=== PATIENT | female | born 1930 | race Caucasian/White ===

== ENCOUNTER 2016-08-25 21:26 | Emergency (ER) | payer OTHER, BC ==
[2016-08-25 21:33] VITALS: BMI 21.6
--- NOTE | 2016-08-25 22:16 | PDOC ---
History of Present Illness <Reji Nelson - Last Filed: 08/25/16 22:12> - General History Source: Patient, Family Exam Limitations: No Limitations - History of Present Illness Initial Comments: 08/25/16 22:17 The patient is a 86 year old female, with a significant past medical history of AFib(on coumadin), diverticulitis, hypertension, hyperlipidemia, hypothyroidism , and hyperkalemia, who presents to the emergency department complaining of leg pain bilaterally approximately 2 days. The patient reports she went out shopping with her grandson, when suddenly she began to get pain in her left forearm and in her legs bilaterally. After going home she reports her leg pain worsened due to swelling and pressure. The patient reports the swelling in her legs is part of her baseline. However, as per family member, the patients leg swelling has been worsening. The patient reports paresthesias in her legs bilaterally. The patient reports she is on a water pill, but is only drinking 3 bottles of water a day. She reports dry mucous membranes and production of sputum, but denies fever, chills, cough, headache, or dizziness. The patient admits she elevates her legs 2 times a day, but does not elevate them at night. The patient reports diffuse body aches, for which she has been taking tylenol with minor relief. The patient reports she has followed-up with Dr. Patino for her leg swelling. The patient denies any chest pain, shortness of breath, diaphoresis or palpitations. The patient denies any recent travel or sick contacts. Allergies: Levofloxacin, Metronidazole HCl, ciprofloxacin HCl Past Surgical History: Appendectomy, left ankle screws PCP: Dr. Patino Tank Filler: Dr. Swan <Liat Edwards - Last Filed: 08/25/16 22:21> - General Chief Complaint: Pain Stated Complaint: BOTH LEGS PAIN/LT ARM PAIN Time Seen by Provider: 08/25/16 21:52 Past History - Past Medical History Anemia: No Asthma: No Cancer: Yes Cardiac Disorders: Yes CVA: Yes COPD: No CHF: No Dementia: No Diabetes: No GI Disorders: Yes (diverticulitis) Disorders: No HTN: Yes Hypercholesterolemia: Yes Liver Disease: No Suicide Attempt (Hx): No Seizures: No Thyroid Disease: Yes - Surgical History Abdominal Surgery: No Appendectomy: Yes Cardiac Surgery: No Cholecystectomy: No Lung Surgery: No Neurologic Surgery: No Orthopedic Surgery: Yes (lt ankle screws in.) - Immunization History Immunization Up to Date: Yes - Psycho/Social/Smoking Cessation Hx Anxiety: Yes (ON MEDICATION) Suicidal Ideation: No Smoking Status: No Smoking History: Never smoked Have you smoked in the past 12 months: No Number of Cigarettes Smoked Daily: 0 Information on smoking cessation initiated: No Hx Alcohol Use: No Drug/Substance Use Hx: No Substance Use Type: None Hx Substance Use Treatment: No <Reji Nelson - Last Filed: 08/25/16 22:12> <Liat Edwards - Last Filed: 08/25/16 22:21> - Past Medical History Allergies/Adverse Reactions: Allergies Allergy/AdvReac Type Severity Reaction Status Date / Time levofloxacin [From Levaquin] Allergy Intermediate Verified 08/25/16 21:29 Metronidazole HCl Allergy Intermediate Verified 08/25/16 21:29 [From Flagyl] ciprofloxacin HCl AdvReac Intermediate Verified 08/25/16 21:29 [From Cipro] Home Medications: Ambulatory Orders Digoxin [Lanoxin -] 0.125 mcg PO DAILY 03/13/13 Diltiazem HCl [Cartia Xt] 240 mg PO DAILY 03/13/13 Dofetilide [Tikosyn] 125 mcg PO BID #0 capsule 03/14/13 Warfarin Sodium 3 mg PO ASDIR #0 tablet 03/14/13 Sodium Polystyrene Sulfonate [Kayexalate] 15 gm PO DAILY #4 bottle 03/15/14 Buspirone HCl [Buspar -] 15 mg PO DAILY #0 08/06/14 Levothyroxine [Synthroid -] 50 mcg PO DAILY #0 tablet 08/06/14 Metoprolol Succinate [Toprol XL -] 150 mg PO HS #0 tab.sr.24h 08/06/14 Olmesartan Medoxomil [Benicar -] 40 mg PO DAILY #0 tablet 08/06/14 Rosuvastatin Calcium [Crestor] 10 mg PO HS #0 tablet 08/06/14 Warfarin Sodium [Coumadin] 2.5 mg PO ASDIR #0 08/06/14 Review of Systems - Review of Systems Able to Perform ROS?: Yes HEENTM: Yes: Other (Dry mucous membranes, Sputum production) Musculoskeletal: Yes: Symptoms Reported (Bilateral leg pain secondary to edema) , Other (Bilateral lower extremity edema, Diffuse body aches) Neurological: Yes: Paresthesia All Other Systems: Reviewed and Negative <Liat Edwards - Last Filed: 08/25/16 22:21> *Physical Exam - Vital Signs Last Vital Signs Temp Pulse Resp BP Pulse Ox 98.0 F 120 H 14 152/87 98 08/25/16 21:30 08/25/16 21:30 08/25/16 21:30 08/25/16 21:30 08/25/16 21:30 - Physical Exam General Appearance: Yes: Nourished, Appropriately Dressed. No: Apparent Distress HEENT: positive: Normal ENT Inspection, Other (DRY MUCOSAE) Neck: positive: Supple. negative: Tender, Carotid bruit Respiratory/Chest: positive: Lungs Clear, Normal Breath Sounds. negative: Chest Tender, Respiratory Distress Cardiovascular: positive: Irregularly Irregular Gastrointestinal/Abdominal: positive: Normal Bowel Sounds, Soft. negative: Tender Extremity: positive: Normal Capillary Refill, Pedal Edema (2 + UP TO KNEES. NON TENDER. LIGHT, SYMETRIC ERYTHEMA) Integumentary: positive: Normal Color. negative: Petechiae, Rash, Ecchymosis, Bruising Neurologic: positive: Fully Oriented, Alert, Normal Mood/Affect, Normal Response , Motor Strength 5/5 <Reji Nelson - Last Filed: 08/25/16 22:12> - Vital Signs Last Vital Signs Temp Pulse Resp BP Pulse Ox 98.0 F 120 H 14 152/87 98 08/25/16 21:30 08/25/16 21:30 08/25/16 21:30 08/25/16 21:30 08/25/16 21:30 <Liat Edwards - Last Filed: 08/25/16 22:21> Medical Decision Making - Medical Decision Making 08/25/16 22:13 SYMPTOMS AND COMLAINTS SEEM CHRONIC. IN NO RESP DISTRESS LEG ELEVATION, HYDRATION, AND FOLLOW UP SATURDAY <Reji Nelson - Last Filed: 08/25/16 22:12> *DC/Admit/Observation/Transfer <Reji Nelson - Last Filed: 08/25/16 22:12> <Liat Edwards - Last Filed: 08/25/16 22:21> Diagnosis at time of Disposition: Leg pain, bilateral - Discharge Dispostion Disposition: HOME Condition at time of disposition: Stable - Referrals Referrals: Narcisa aPtino MD [Primary Care Provider] - 24 hours - Patient Instructions Additional Instructions: LEG ELEVATION FOR LONG AND OFTEN POSSIBLE ELEVATION AT NIGHT CONSIDER COMPRESSION STOCKINGS IF SIGNIFICANT REDUCTION IN SWELLING AND GUIDED BY YOUR DOCTOR SEE YOUR DOCTOR NEXT WEEK RETURN TO ER IF WORSENING OR NEW SYMPTOMS
[2016-08-25 22:23] VITALS: BP 140/80; PULSE 87; TEMP 98.3
== END 2016-08-25 22:23 | disposition home or self-care (01) ==
LOC: JER 21:26
DX: I48.91 Unspecified atrial fibrillation (principal); Z79.01 Long term (current) use of anticoagulants; I10 Essential (primary) hypertension; E78.00 Pure hypercholesterolemia, unspecified; E03.9 Hypothyroidism, unspecified
CPT/HCPCS: 99283-25

== ENCOUNTER 2017-04-12 21:53 | Emergency (ER) | payer OTHER, BC ==
[2017-04-12 21:58] VITALS: BP 162/84; PULSE 128; TEMP 97.5; BMI 20.8
--- NOTE | 2017-04-12 22:10 | PDOC ---
History of Present Illness <Dayne Guajardo - Last Filed: 04/13/17 01:46> - General History Source: Patient, Family Exam Limitations: No Limitations - History of Present Illness Initial Comments: 04/12/17 22:37 86 y/o F with a PMHx of HTN, HLD, CVA, thyroid disease presents to the ED with a frontal headache tonight. Patient reports drinking water alleviated some symptoms. Daughter believes she may have been dehydrated. She reports light exacerbated her headache. She denies dizziness, numbness, tingling. Denies chest pain, SOB, palpitations. <Abiola Chen - Last Filed: 04/13/17 01:49> - General Chief Complaint: Headache Stated Complaint: HEADACHE Time Seen by Provider: 04/12/17 22:10 Past History - Past Medical History Anemia: No Asthma: No Cancer: Yes Cardiac Disorders: Yes CVA: Yes COPD: No CHF: No Dementia: No Diabetes: No GI Disorders: Yes (diverticulitis) Disorders: No HTN: Yes Hypercholesterolemia: Yes Liver Disease: No Seizures: No Thyroid Disease: Yes - Surgical History Abdominal Surgery: No Appendectomy: Yes Cardiac Surgery: No Cholecystectomy: No Lung Surgery: No Neurologic Surgery: No Orthopedic Surgery: Yes (lt ankle screws in.) - Immunization History Immunization Up to Date: Yes - Suicide/Smoking/Psychosocial Hx Smoking Status: No Smoking History: Never smoked Have you smoked in the past 12 months: No Number of Cigarettes Smoked Daily: 0 Hx Alcohol Use: No Drug/Substance Use Hx: No Substance Use Type: None Hx Substance Use Treatment: No <Dayne Guajardo - Last Filed: 04/13/17 01:46> <Abiola Chen - Last Filed: 04/13/17 01:49> - Past Medical History Allergies/Adverse Reactions: Allergies Allergy/AdvReac Type Severity Reaction Status Date / Time levofloxacin [From Levaquin] Allergy Intermediate Verified 04/12/17 21:58 Metronidazole HCl Allergy Intermediate Verified 04/12/17 21:58 [From Flagyl] ciprofloxacin HCl AdvReac Intermediate Verified 04/12/17 21:58 [From Cipro] Home Medications: Ambulatory Orders Digoxin [Lanoxin -] 0.125 mcg PO DAILY 03/13/13 Diltiazem HCl [Cartia Xt] 240 mg PO DAILY 03/13/13 Dofetilide [Tikosyn] 125 mcg PO BID #0 capsule 03/14/13 Warfarin Sodium 3 mg PO ASDIR #0 tablet 03/14/13 Buspirone HCl [Buspar -] 15 mg PO DAILY #0 08/06/14 Levothyroxine [Synthroid -] 50 mcg PO DAILY #0 tablet 08/06/14 Metoprolol Succinate [Toprol XL -] 150 mg PO HS #0 tab.sr.24h 08/06/14 Olmesartan Medoxomil [Benicar -] 40 mg PO DAILY #0 tablet 08/06/14 Rosuvastatin Calcium [Crestor] 10 mg PO HS #0 tablet 08/06/14 Warfarin Sodium [Coumadin] 2.5 mg PO ASDIR #0 08/06/14 Cephalexin Monohydrate [Keflex -] 250 mg PO Q8H #21 capsule 04/13/17 Review of Systems - Review of Systems Able to Perform ROS?: Yes Comments:: 04/12/17 22:37 GENERAL/CONSTITUTIONAL: No fever or chills. No weakness. HEAD, EYES, EARS, NOSE AND THROAT: No change in vision. No ear pain or discharge. No sore throat. CARDIOVASCULAR: No chest pain or shortness of breath. RESPIRATORY: No cough, wheezing, or hemoptysis. GASTROINTESTINAL: No nausea, vomiting, diarrhea or constipation. GENITOURINARY: No dysuria, frequency, or change in urination. MUSCULOSKELETAL: No joint or muscle swelling or pain. No neck or back pain. SKIN: No rash NEUROLOGIC: (+) headache. No vertigo, loss of consciousness, or change in strength/sensation. ENDOCRINE: No increased thirst. No abnormal weight change. HEMATOLOGIC/LYMPHATIC: No anemia, easy bleeding, or history of blood clots. ALLERGIC/IMMUNOLOGIC: No hives or skin allergy. <Abiola Chen - Last Filed: 04/13/17 01:49> *Physical Exam - Vital Signs Last Vital Signs Temp Pulse Resp BP Pulse Ox 97.5 F L 128 H 20 162/84 99 04/12/17 21:54 04/12/17 21:54 04/12/17 21:54 04/12/17 21:54 04/12/17 21:54 <Dayne Guajardo - Last Filed: 04/13/17 01:46> - Vital Signs Last Vital Signs Temp Pulse Resp BP Pulse Ox 97.5 F L 128 H 20 162/84 99 04/12/17 21:54 04/12/17 21:54 04/12/17 21:54 04/12/17 21:54 04/12/17 21:54 - Physical Exam Comments: 04/12/17 22:37 GENERAL: Awake, alert, and fully oriented, in no acute distress HEAD: No signs of trauma EYES: PERRLA, EOMI, sclera anicteric, conjunctiva clear ENT: Facial tenderness. Auricles normal inspection, hearing grossly normal, nares patent, oropharynx clear without exudates. Moist mucosa NECK: Normal ROM, supple, no lymphadenopathy, JVD, or masses LUNGS: Breath sounds equal, clear to auscultation bilaterally. No wheezes, and no crackles HEART: Regular rate and rhythm, normal S1 and S2, no murmurs, rubs or gallops ABDOMEN: Soft, nontender, normoactive bowel sounds. No guarding, no rebound. No masses EXTREMITIES: Normal range of motion, no edema. No clubbing or cyanosis. No cords, erythema, or tenderness NEUROLOGICAL: Cranial nerves II through XII grossly intact. Normal speech, normal gait SKIN: Warm, Dry, normal turgor, no rashes or lesions noted. <Abiola Chen - Last Filed: 04/13/17 01:49> ED Treatment Course - LABORATORY CBC & Chemistry Diagram: 04/12/17 23:00 04/12/17 23:00 <Dayne Guajardo - Last Filed: 04/13/17 01:46> - LABORATORY CBC & Chemistry Diagram: 04/12/17 23:00 04/12/17 23:00 - RADIOLOGY Radiograph Interpretation: 04/13/17 01:[address] reported by Nagi Stapleton MD IMPRESSION: NO ACUTE INTRACRANIAL ABNORMALITY. <Abiola Chen - Last Filed: 04/13/17 01:49> *DC/Admit/Observation/Transfer - Discharge Dispostion Admit: No - Attestations Physician Attestion: 04/12/17 22:10 I, Dr. Dayne Guajardo, attest that this document has been prepared under my direction and personally reviewed by me in its entirety. I further attest, that it accurately reflects all work, treatment, procedures and medical decision -making performed by me. <Dayne Guajardo - Last Filed: 04/13/17 01:46> - Attestations Scribe Attestion: 04/12/17 22:38 Documentation prepared by Abiola Chen, acting as medical anthropologist for Dayne Guajardo DO. <Abiola Chen - Last Filed: 04/13/17 01:49> Diagnosis at time of Disposition: UTI (urinary tract infection) Qualifiers: Urinary tract infection type: site unspecified Hematuria presence: with hematuria Qualified Code(s): N39.0 - Urinary tract infection, site not specified Headache Qualifiers: Headache type: unspecified Headache chronicity pattern: acute headache Intractability: not intractable Qualified Code(s): R51 - Headache - Discharge Dispostion Disposition: HOME - Prescriptions Prescriptions: Cephalexin Monohydrate [Keflex -] 250 mg PO Q8H #21 capsule - Referrals Referrals: Narcisa Patino MD [Primary Care Provider] - - Patient Instructions Printed Discharge Instructions: DI for Headache, DI for Urinary Tract Infection (UTI) Additional Instructions: Dr. Mrs Estrada- Plenty of Fluids, Tylenol for pain, Keflex three times a day for seven days for UTI, Follow up with your doctor next week. Return to us if worse or new symptoms. Best- Dr. Dayne Guajardo
[2017-04-12 23:26] LABS: EOSINOPHIL 4.9 % (0-4.5); MCH 27.1 pg (25.7-33.7); MCHC 33.3 g/dl (32.0-36.0); MEAN CELL VOLUME 81.5 fl (80-96); MEAN PLT VOLUME 10.8 fl (7.5-11.1); NEUTROPHILS 54.2 % (42.8-82.8); PLATELET COUNT 88 K/MM3 (134-434); WHITE BLOOD COUNT 5.9 K/mm3 (4.0-10.0)
[2017-04-12 23:37] LABS: URINE APPEARANCE CLEAR; URINE BILIRUBIN NEGATIVE (NEGATIVE); URINE BLOOD 1+ (NEGATIVE); URINE COLOR STRAW; URINE GLUCOSE (UA) NEGATIVE (NEGATIVE); URINE KETONE NEGATIVE (NEGATIVE); URINE NITRITE NEGATIVE (NEGATIVE); URINE PROTEIN NEGATIVE (NEGATIVE); URINE UROBILINOGEN NEGATIVE mg/dL (0.2-1.0)
[2017-04-12 23:47] LABS: ALBUMIN 4.3 g/dl (3.4-5.0); ANION GAP 11 (8-16); BILIRUBIN,TOTAL 0.6 mg/dL (0.2-1.0); CALCIUM 8.8 mg/dL (8.5-10.1); CO2 26 mmol/L (21-32); CREATININE 1.2 mg/dL (0.55-1.02); GLUCOSE,RANDOM 89 mg/dL (74-106); SGOT/AST 22 U/L (15-37); SGPT/ALT 30 U/L (12-78)
[2017-04-12 23:48] LABS: ALK PHOS 80 U/L (45-117)
[2017-04-12 23:55] LABS: INR 1.64 (0.82-1.09); PROTHROMBIN TIME (PATIENT) 18.5 SEC (9.98-11.88)
[2017-04-13 00:12] LABS: URINE WBC 2 /hpf (3-5)
[2017-04-13] MEDS ORDERED: CEFTRIAXONE 1 GM in DEXTROSE 5%-WATER - 50 ML IVPB ONE (00:31)
[2017-04-13] MEDS ORDERED: SODIUM CHLORIDE 1,000 ML IV STA (00:31)
[2017-04-13] MEDS ORDERED: cefTRIAXone SODIUM 1 GM VIAL ONE (00:37)
[2017-04-13 02:25] LABS: ERYTHROCYTE SEDIMENTATION RATE 10 mm/hr (0-30)
[2017-04-13 12:10] LABS: URINE LEUK ESTERASE TRACE (NEGATIVE)
== END 2017-04-13 02:06 | disposition home or self-care (01) ==
LOC: JER 21:53
DX: N39.0 Urinary tract infection, site not specified (principal); I10 Essential (primary) hypertension; E78.00 Pure hypercholesterolemia, unspecified; E03.9 Hypothyroidism, unspecified; Z86.73 Personal history of transient ischemic attack (TIA), and cerebral infarction without residual deficits
CPT/HCPCS: 36415; 70450-TC; 80053; 81003; 81015; 83605; 85025; 85610; 85651; 87086; 96365; 99283-25

== ENCOUNTER 2017-10-06 13:53 | Emergency (ER) | payer OTHER, BC ==
[2017-10-06 14:11] VITALS: BP 149/75; PULSE 91; TEMP 97.8; BMI 27.3
[2017-10-06] MEDS ORDERED: DIPHTH,PERTUSS(ACELL),TET 0.5 ML DISP.SYRIN IM ONE (15:05)
--- NOTE | 2017-10-06 16:07 | PDOC ---
History of Present Illness - General Chief Complaint: Laceration Stated Complaint: FALL Time Seen by Provider: 10/06/17 14:15 - History of Present Illness Initial Comments: 10/06/17 15:14 CHIEF COMPLAINT: laceration HISTORY OF PRESENT ILLNESS: 87 yo F presents to [facility] with c/o of laceration s/p mechanical fall. Patient and daughter report that the patient tripped on "a broken sidewalk" and sustained a laceration to her L leg. Daughter reports that she witnessed the fall and that the patient did not suffer any other injuries. Daughter reports that the patient "caught herself with her hands before she fell, so she didn't hit anything else." Patient denies any pain to wrist, hands, or arms, or anywhere else on her body. Patient states she "thinks" she had a tetanus in the last 10 years but is unsure. No recent travel or sick contacts. PAST MEDICAL HISTORY: Denies past medical history FAMILY HISTORY: Denies SOCIAL HISTORY: Denies tobacco, alcohol, illicit drug use. SURGICAL HISTORY: Denies ALLERGIES: levaquin, flagyl, cipro REVIEW OF SYSTEMS General/Constitutional: Denies fever or chills. Denies weakness, weight change. HEENT: Denies change in vision. Denies ear pain or discharge. Denies sore throat. Cardiovascular: Denies chest pain or shortness of breath. Respiratory: Denies cough, wheezing, or hemoptysis. Gastrointestinal: Denies nausea, vomiting, diarrhea or constipation. Denies rectal bleeding. Genitourinary: Denies dysuria, frequency, or change in urination. Musculoskeletal: Denies joint or muscle swelling or pain. Denies neck or back pain. Skin and breasts: "I tripped on a broken sidewalk and cut my leg." Neurologic: Denies headache, vertigo, loss of consciousness, or loss of sensation. PHYSICAL EXAM General Appearance: Well-appearing, appropriately dressed. No apparent distress. HEENT: EOMI, PERRLA, normal ENT inspection, normal voice, TMs normal, pharynx normal. No conjunctival pallor. No photophobia, scleral icterus. Respiratory/Chest: Lungs CTAB. No shortness of breath, chest tenderness, respiratory distress, accessory muscle use. No crackles, rales, rhonchi, stridor , wheezing, dullness Cardiovascular: RRR. S1, S2. Gastrointestinal/Abdominal: Normal bowel sounds. Abdomen soft, non-distended. No tenderness or rebound tenderness. No organomegaly, pulsatile mass, guarding , hernia, hepatomegaly, splenomegaly. Musculoskeletal/Extremities: Normal inspection. FROM of all extremities, normal capillary refill. Pelvis Stable. No CVA tenderness. No tenderness to extremities, pedal edema, swelling, erythema or deformity. Integumentary: 2 cm thin flap laceration to left lower leg with surrounding ecchymosis. Appropriate color, dry, warm. No cyanosis, erythema, jaundice or rash Neurologic: heart specialist II-XII intact. Fully oriented, alert. Appropriate mood/affect. Motor strength 5/5. No appreciable EOM palsy, facial droop or sensory deficit. Past History - Past Medical History Allergies/Adverse Reactions: Allergies Allergy/AdvReac Type Severity Reaction Status Date / Time levofloxacin [From Levaquin] Allergy Intermediate Verified 04/12/17 21:58 Metronidazole HCl Allergy Intermediate Verified 04/12/17 21:58 [From Flagyl] ciprofloxacin HCl AdvReac Intermediate Verified 04/12/17 21:58 [From Cipro] Home Medications: Ambulatory Orders Digoxin [Lanoxin -] 0.125 mcg PO DAILY 03/13/13 Diltiazem HCl [Cartia Xt] 240 mg PO DAILY 03/13/13 Dofetilide [Tikosyn] 125 mcg PO BID #0 capsule 03/14/13 Warfarin Sodium 3 mg PO ASDIR #0 tablet 03/14/13 Buspirone HCl [Buspar -] 15 mg PO DAILY #0 08/06/14 Levothyroxine [Synthroid -] 50 mcg PO DAILY #0 tablet 08/06/14 Metoprolol Succinate [Toprol XL -] 150 mg PO HS #0 tab.sr.24h 08/06/14 Olmesartan Medoxomil [Benicar -] 40 mg PO DAILY #0 tablet 08/06/14 Rosuvastatin Calcium [Crestor] 10 mg PO HS #0 tablet 08/06/14 Warfarin Sodium [Coumadin] 2.5 mg PO ASDIR #0 08/06/14 Cephalexin Monohydrate [Keflex -] 250 mg PO Q8H #21 capsule 04/13/17 Anemia: No Asthma: No Cancer: Yes Cardiac Disorders: Yes CVA: Yes COPD: No CHF: No Dementia: No Diabetes: No GI Disorders: Yes (diverticulitis) Disorders: No HTN: Yes Hypercholesterolemia: Yes Liver Disease: No Seizures: No Thyroid Disease: Yes - Surgical History Abdominal Surgery: No Appendectomy: Yes Cardiac Surgery: No Cholecystectomy: No Lung Surgery: No Neurologic Surgery: No Orthopedic Surgery: Yes (lt ankle screws in.) - Immunization History Immunization Up to Date: Yes - Suicide/Smoking/Psychosocial Hx Smoking Status: No Smoking History: Never smoked Have you smoked in the past 12 months: No Number of Cigarettes Smoked Daily: 0 Information on smoking cessation initiated: No Hx Alcohol Use: No Drug/Substance Use Hx: No Substance Use Type: None Hx Substance Use Treatment: No *Physical Exam - Vital Signs Last Vital Signs Temp Pulse Resp BP Pulse Ox 97.8 F 91 H 20 149/75 98 10/06/17 14:09 10/06/17 14:09 10/06/17 14:09 10/06/17 14:09 10/06/17 14:09 Medical Decision Making - Medical Decision Making 10/06/17 16:07 87 yo F presents to [facility] with c/o of laceration s/p mechanical fall. flap laceration with flap too thin for suture repair, laceration repaired with dermabond. Edges well approximated, no bleeding at this time. Tdap given. Advised patient to follow up with PCP by the end of the week. Advised patient of signs and symptoms for return to ER; patient verbalized understanding and agrees to plan. *DC/Admit/Observation/Transfer Diagnosis at time of Disposition: Laceration - Discharge Dispostion Disposition: HOME Condition at time of disposition: Stable Admit: No - Referrals Referrals: Narcisa Patino MD [Primary Care Provider] - - Patient Instructions Printed Discharge Instructions: DI for Laceration Repair With Dermabond Additional Instructions: Please follow up with Dr. Patino by the end of this week for further evaluation and continued monitoring. If you develop ANY dizziness, headache, loss of memory, wrist pain, worsening leg pain, or you develop redness, streaking, swelling, or warmth to the site of your cut, please return to the ER immediately. - Post Discharge Activity
== END 2017-10-06 15:56 | disposition home or self-care (01) ==
LOC: JER 13:53 → JERFT 13:53
PROC: 0HQLXZZ Repair Left Lower Leg Skin, External Approach (ICD-10-PCS; principal; 2017-10-06)
PROC: 3E0234Z Introduction of Serum, Toxoid and Vaccine into Muscle, Percutaneous Approach (ICD-10-PCS; 2017-10-06)
DX: S81.812A Laceration without foreign body, left lower leg, initial encounter (principal); W18.39XA Other fall on same level, initial encounter; Y93.01 Activity, walking, marching and hiking; Y92.480 Sidewalk as the place of occurrence of the external cause; Y99.8 Other external cause status; I10 Essential (primary) hypertension; E78.00 Pure hypercholesterolemia, unspecified; E07.9 Disorder of thyroid, unspecified; Z86.73 Personal history of transient ischemic attack (TIA), and cerebral infarction without residual deficits; Z79.01 Long term (current) use of anticoagulants
CPT/HCPCS: 12011; 90471; 90715; 99281-25

== ENCOUNTER 2017-12-19 14:16 | Observation (INO) | payer OTHER, BC ==
--- NOTE | 2017-12-19 14:25 | PDOC ---
Rapid Medical Evaluation Chief Complaint: Overdose Time Seen by Provider: 12/19/17 14:20 Medical Evaluation: Allergies Allergy/AdvReac Type Severity Reaction Status Date / Time levofloxacin [From Levaquin] Allergy Intermediate Verified 12/19/17 14:21 Metronidazole HCl Allergy Intermediate Verified 12/19/17 14:21 [From Flagyl] ciprofloxacin HCl AdvReac Intermediate Verified 12/19/17 14:21 [From Cipro] I have performed a brief in-person evaluation of this patient. The patient presents with a chief complaint of: concerned she took her morning pills twice at 11am. No symptoms. Meds are diltiazem and olmesartan Pertinent physical exam findings: none. Vital signs normal I have ordered the following: nothing The patient will proceed to the ED for further evaluation. Discharge Disposition - Diagnosis Medication administered in error - Referrals - Patient Instructions - Post Discharge Activity
--- NOTE | 2017-12-19 15:20 | PDOC ---
History of Present Illness - General Chief Complaint: Overdose Stated Complaint: TOOK MEDICINE TWICE Time Seen by Provider: 12/19/17 14:20 History Source: Patient Exam Limitations: No Limitations - History of Present Illness Initial Comments: 12/19/17 15:19 This is a 87-year-old woman with past medical history of A. fib, hypertension, hyperlipidemia presents emergency departments after questionable overdose of calcium channel angie and ARB. Patient states she believes she took her medication this morning but then took a nap. When awaking from that she was unsure if she had taken her medication and took another dose. Patient called poison control and was referred to the emergency department for continued evaluation. She denies all complaints at this time. Past History - Past Medical History Allergies/Adverse Reactions: Allergies Allergy/AdvReac Type Severity Reaction Status Date / Time levofloxacin [From Levaquin] Allergy Intermediate Verified 12/19/17 14:21 Metronidazole HCl Allergy Intermediate Verified 12/19/17 14:21 [From Flagyl] ciprofloxacin HCl AdvReac Intermediate Verified 12/19/17 14:21 [From Cipro] Home Medications: Ambulatory Orders Digoxin [Lanoxin -] 0.125 mcg PO DAILY 03/13/13 Diltiazem HCl [Cartia Xt] 240 mg PO DAILY 03/13/13 Dofetilide [Tikosyn] 125 mcg PO BID #0 capsule 03/14/13 Warfarin Sodium 3 mg PO ASDIR #0 tablet 03/14/13 Buspirone HCl [Buspar -] 15 mg PO DAILY #0 08/06/14 Levothyroxine [Synthroid -] 50 mcg PO DAILY #0 tablet 08/06/14 Metoprolol Succinate [Toprol XL -] 150 mg PO HS #0 tab.sr.24h 08/06/14 Olmesartan Medoxomil [Benicar -] 40 mg PO DAILY #0 tablet 08/06/14 Rosuvastatin Calcium [Crestor] 10 mg PO HS #0 tablet 08/06/14 Warfarin Sodium [Coumadin] 2.5 mg PO ASDIR #0 08/06/14 Cephalexin Monohydrate [Keflex -] 250 mg PO Q8H #21 capsule 04/13/17 Anemia: No Asthma: No Cancer: Yes Cardiac Disorders: Yes CVA: Yes COPD: No CHF: No Dementia: No Diabetes: No GI Disorders: Yes (diverticulitis) Disorders: No HTN: Yes Hypercholesterolemia: Yes Liver Disease: No Seizures: No Thyroid Disease: Yes - Surgical History Abdominal Surgery: No Appendectomy: Yes Cardiac Surgery: No Cholecystectomy: No Lung Surgery: No Neurologic Surgery: No Orthopedic Surgery: Yes (lt ankle screws in.) - Immunization History Immunization Up to Date: Yes - Suicide/Smoking/Psychosocial Hx Smoking Status: No Smoking History: Never smoked Have you smoked in the past 12 months: No Number of Cigarettes Smoked Daily: 0 Hx Alcohol Use: No Drug/Substance Use Hx: No Substance Use Type: None Hx Substance Use Treatment: No Review of Systems - Review of Systems Able to Perform ROS?: Yes Is the patient limited Bulgarian proficient: No All Other Systems: Reviewed and Negative *Physical Exam - Vital Signs Last Vital Signs Temp Pulse Resp BP Pulse Ox 97.8 F 84 16 144/72 99 12/19/17 14:22 12/19/17 14:22 12/19/17 14:22 12/19/17 14:22 12/19/17 14:22 - Physical Exam General Appearance: Yes: Appropriately Dressed. No: Apparent Distress HEENT: positive: Normal ENT Inspection Neck: positive: Trachea midline, Supple Respiratory/Chest: positive: Lungs Clear, Normal Breath Sounds. negative: Respiratory Distress, Accessory Muscle Use Cardiovascular: positive: Regular Rate, Edema (3+ pedal), Irregularly Irregular. negative: Murmur Gastrointestinal/Abdominal: positive: Normal Bowel Sounds, Soft. negative: Tender Musculoskeletal: positive: Normal Inspection. negative: CVA Tenderness Extremity: positive: Normal Inspection Integumentary: positive: Normal Color, Dry, Warm Neurologic: positive: Fully Oriented, Alert, Normal Response, Motor Strength 5/5 ED Treatment Course - LABORATORY CBC & Chemistry Diagram: 12/19/17 16:50 12/19/17 16:50 Medical Decision Making - Medical Decision Making 12/19/17 15:16 A/P: 87-year-old woman with questionable overdose of calcium channel angie and ARB Physical exam is within normal limits Case discussed with Navdeep at poison control who states any calcium channel angie dosage of 360 mg extended release or greater requires 24-hour observation and cardiac monitoring. He recommends IV glucagon and high-dose insulin therapy if patient becomes symptomatic. EKG: A. fib with rate of 74. I will call the patient's primary care provider- Dr. Patino for admission to the hospital for overnight observation. 12/19/17 16:00 Second call placed to Dr. Patino for admission. 12/19/17 16:15 Call #[address] Patino for admission. 12/19/17 17:06 Unable to contact PCP. I will admit to [facility]. *DC/Admit/Observation/Transfer Diagnosis at time of Disposition: Overdose of antihypertensive agent Qualifiers: Encounter type: initial encounter Injury intent: accidental or unintentional Qualified Code(s): T46.5X1A - Poisoning by other antihypertensive drugs, accidental (unintentional), initial encounter - Discharge Dispostion Condition at time of disposition: Fair Decision to Admit order: Yes - Referrals Referrals: Narcisa Patino MD [Primary Care Provider] - - Patient Instructions - Post Discharge Activity Forms/Work/School Notes: Back to Work
--- NOTE | 2017-12-19 16:43 | PDOC ---
*Physical Exam - Vital Signs Last Vital Signs Temp Pulse Resp BP Pulse Ox 97.8 F 84 16 144/72 99 12/19/17 14:22 12/19/17 14:22 12/19/17 14:22 12/19/17 14:22 12/19/17 14:22 ED Treatment Course - LABORATORY CBC & Chemistry Diagram: 12/20/17 06:20 12/20/17 06:20 Medical Decision Making - Medical Decision Making 12/19/17 16:42 87-year-old female presenting to the emergency department because she was unsure if she took her potassium channel angie, and took an additional dose. Patient has no shortness of breath, weakness, palpitations. He is well appearing on examination. Case reviewed with poison control who recommended 24-hour observation. EKG: Atrial fibrillation, rate of 72 bpm, axis is normal, no ST elevations or depressions, T waves upright Pt seen by Midlevel Provider under my direct supervision Pt interviewed and examined Ancillary studies reviewed I agree with plan as outlined by Midlevel Provider 12/20/17 10:52 *DC/Admit/Observation/Transfer Diagnosis at time of Disposition: Overdose of antihypertensive agent - Discharge Dispostion Condition at time of disposition: Fair - Referrals - Patient Instructions - Post Discharge Activity
[2017-12-19 16:57] LABS: EOS % 2.9 % (0-4.5); HEMATOCRIT 35.1 % (32.4-45.2); HEMOGLOBIN 11.7 GM/dL (10.7-15.3); LYMPH % 26.5 % (8-40); MCHC 33.3 g/dl (32.0-36.0); MEAN CELL VOLUME 84.2 fl (80-96); MEAN PLT VOLUME 10.4 fl (7.5-11.1); MONO % 8.9 % (3.8-10.2); NEUT % 60.7 % (42.8-82.8); PLATELET COUNT 113 K/MM3 (134-434); RBC 4.17 M/mm3 (3.60-5.2); RDW 15.4 % (11.6-15.6); WHITE BLOOD COUNT 6.9 K/mm3 (4.0-10.0)
[2017-12-19 17:51] LABS: CHLORIDE 107 mmol/L (98-107); SODIUM 140 mmol/L (136-145)
[2017-12-19 18:38] LABS: ANION GAP 9 (8-16); BLOOD UREA NITROGEN 33 mg/dL (7-18); CALCIUM 9.4 mg/dL (8.5-10.1); CO2 24 mmol/L (21-32); CREATININE 1.6 mg/dL (0.55-1.02); GLUCOSE,RANDOM 92 mg/dL (74-106)
--- NOTE | 2017-12-19 18:41 | HP ---
CHIEF COMPLAINT: "I think I took my heart medications twice by mistake" PCP: Dr. Patino HISTORY OF PRESENT ILLNESS: Patient is an 87 year old female with a significant past medical history of atril fibrillation (on coumadin) hypertension and hyperlipidemia She presents to the ED today after she became uncertain and very concerned whether or not she took her morning cardiac medications (Cardizem and olmesartan) twice. Patient remembers taking her cardiac medications this morning (cardizem and olmesartan) and then fell asleep. She is not sure if she took them again but believes that she did. Patient called poison control and was referred to the emergency department for continued evaluation. She denies any chest pain, lightheadness, palpitations, or dizziness. On exam she was sitting up in bed, in no acute distress. Mildly forgetful and mildly anxious about not remembering if she may have taken her medications twice. Assured her that we would keep an eye on her overnight and monitor her heart rate and blood pressure closely. Advised her that we will manage her medications while she is here. She does not appear confused, but is slightly anxious. She states it was an accident and I do not suspect any intention on her part. ER course was notable for: (1) normal bp, asymptomatic (2) ekg with controlled afib (3) inr 2.04, K. 5.6 Family History: Allergies levofloxacin [From Levaquin] Allergy (Intermediate, Verified 12/19/17 14:21) Metronidazole HCl [From Flagyl] Allergy (Intermediate, Verified 12/19/17 14:21) ciprofloxacin HCl [From Cipro] Adverse Reaction (Intermediate, Verified 14:21) ANXIETY HOME MEDICATIONS: Home Medications Medication Instructions Recorded Digoxin [Lanoxin -] 0.125 mcg PO DAILY 03/13/13 Diltiazem HCl [Cartia Xt] 240 mg PO DAILY 03/13/13 Dofetilide [Tikosyn] 125 mcg PO BID #0 capsule 03/14/13 Warfarin Sodium 3 mg PO ASDIR #0 tablet 03/14/13 Buspirone HCl [Buspar -] 15 mg PO DAILY #0 08/06/14 Levothyroxine [Synthroid -] 50 mcg PO DAILY #0 tablet 08/06/14 Metoprolol Succinate [Toprol XL -] 150 mg PO HS #0 tab.sr.24h 08/06/14 Olmesartan Medoxomil [Benicar -] 40 mg PO DAILY #0 tablet 08/06/14 Rosuvastatin Calcium [Crestor] 10 mg PO HS #0 tablet 08/06/14 Warfarin Sodium [Coumadin] 2.5 mg PO ASDIR #0 08/06/14 Cephalexin Monohydrate [Keflex -] 250 mg PO Q8H #21 capsule 04/13/17 REVIEW OF SYSTEMS CONSTITUTIONAL: Absent: fever, chills, diaphoresis, generalized weakness, malaise, loss of appetite, weight change HEENT: Absent: rhinorrhea, nasal congestion, throat pain, throat swelling, difficulty swallowing, mouth swelling, ear pain, eye pain, visual changes CARDIOVASCULAR: Absent: chest pain, syncope, palpitations, lightheadedness RESPIRATORY: Absent: cough, shortness of breath, dyspnea with exertion, orthopnea, wheezing, stridor, hemoptysis GASTROINTESTINAL: Absent: abdominal pain, abdominal distension, nausea, vomiting, diarrhea, constipation, melena, hematochezia GENITOURINARY: Absent: dysuria, frequency, urgency, hesitancy, hematuria, flank pain, genital pain MUSCULOSKELETAL: Absent: myalgia, arthralgia, joint swelling, back pain, neck pain SKIN: Absent: rash, itching, pallor HEMATOLOGIC/IMMUNOLOGIC: Absent: easy bleeding, easy bruising, lymphadenopathy, frequent infections ENDOCRINE: Absent: unexplained weight gain, unexplained weight loss, heat intolerance, cold intolerance NEUROLOGIC: Absent: headache, focal weakness or paresthesias, dizziness, unsteady gait, seizure, mental status changes, bladder or bowel incontinence PSYCHIATRIC: Absent: depression, suicidal or homicidal ideation, hallucinations. PHYSICAL EXAMINATION Vital Signs - 24 hr 12/19/17 14:22 Temperature 97.8 F Pulse Rate 84 Respiratory 16 Rate Blood Pressure 144/72 O2 Sat by Pulse 99 Oximetry (%) GENERAL: Awake, alert, and fully oriented, in no acute distress. slightly anxious, worried HEAD: Normal with no signs of trauma. EYES: Pupils equal, round and reactive to light, extraocular movements intact, sclera anicteric, conjunctiva clear. No lid lag. EARS, NOSE, THROAT: Ears normal, nares patent, oropharynx clear without exudates. Moist mucous membranes. NECK: Normal range of motion, supple without lymphadenopathy, JVD, or masses. LUNGS: Breath sounds equal, clear to auscultation bilaterally. No wheezes HEART: ekg with controlled afib 74 ABDOMEN: Soft, nontender, not distended, normoactive bowel sounds, no guarding, no rebound, no masses. LOWER EXTREMITIES: lower extremity bilateral non pitting edema NEUROLOGICAL: Normal speech. Normal gait. PSYCHIATRIC: Cooperative. Good eye contact. SKIN: Warm, dry, normal turgor, no rashes or lesions noted, normal capillary refill. Laboratory Results - last 24 hr 12/19/17 16:50 WBC 6.9 RBC 4.17 Hgb 11.7 Hct 35.1 MCV 84.2 MCH 28.0 MCHC 33.3 RDW 15.4 Plt Count 113 L MPV 10.4 Absolute Neuts (auto) 4.2 Neutrophils % 60.7 Lymphocytes % 26.5 Monocytes % 8.9 Eosinophils % 2.9 Basophils % 1.0 Nucleated RBC % 0 ASSESSMENT/PLAN: Patient is an 87 year old female with a significant past medical history of atril fibrillation (on coumadin) hypertension and hyperlipidemia. She presents to the ED today after she became uncertain and very concerned whether or not she took her morning cardiac medications (Cardizem and olmesartan) twice. Poison control center called by the ED per signout and informed that any calcium channel angie dosage of 360 mg extended release or greater requires 24 hour observation and cardiac monitoring. Poison control recommends IV glucagon and high-dose insulin therapy if patient becomes symptomatic. Possible accidental overdose: Monitor on tele with close watch on BP and pulse. Frequent checks on patient for safety monitoring. Symptoms to look out for: bradycardia, AV block, arrhythmias, hypotension, syncope, cardiac failure, hepatic injury. Cardiac: Afib: Patient INR stable at 2.04, will continue home dose of coumadin. Hold beta blockers and resume as per primary MD in a.m. Hypertension hx: hold cardiac meds overnight and monitor pulse, bp Renal: LAMONT @ 1.6: creat has been elevated in past admissions. Will gently hydrate overnight and repeat. Hyperkalemia: 5.6, kayexalate now and repeat K values tonight and again tomorrow in a.m. . Monitor on tele. fen ivf: ns @ 50cc/hr monitor electrolytes: low salt diet Prophy On coumadin full code Visit type - Emergency Visit Emergency Visit: Yes Care time: The patient presented to the Emergency Department on the above date and was hospitalized for further evaluation of their emergent condition. - New Patient This patient is new to me today: Yes Date on this admission: 12/19/17 - Critical Care Critical Care patient: No Hospitalist Screening - Colonoscopy Questionnaire Colonoscopy Questionnaire: Colonoscopy Questionnaire - Patient: 50 - 75 years old and never had a screening colonoscopy: Unknown History of colon or rectal polyps, or CA: Unknown History of IBD, Crohn's disease or UC: Unknown History of abdominal radiation therapy as a child: Unknown - Relative: 1 with colon or rectal CA, or polyps at age 60 or younger: Unknown Colon or rectal CA diagnosed at age 45 or younger: Unknown Multiple relatives with colon or rectal CA: Unknown - Outcome: Screening Result: Negative Screen
[2017-12-19 18:55] LABS: POTASSIUM 5.6 mmol/L (3.5-5.1)
[2017-12-19 19:27] LABS: INR 2.05 (0.82-1.09); PROTHROMBIN TIME (PATIENT) 23.2 SEC (9.7-13.0)
[2017-12-19] MEDS ORDERED: WARFARIN NA 1 MG TABLET (FP) PO ONE (20:00)
[2017-12-19] MEDS ORDERED: SODIUM CHLORIDE 1,000 ML IV SCH (20:00)
[2017-12-19] MEDS ORDERED: SODIUM POLYSTYRENE SULFONATE 15 GM/60 ML BOTTLE PO ONE (20:44)
[2017-12-19 23:12] VITALS: BMI 20.5
[2017-12-20 06:50] LABS: BASO % 1.1 % (0-2.0); EOS % 4.1 % (0-4.5); HEMATOCRIT 32.5 % (32.4-45.2); HEMOGLOBIN 10.9 GM/dL (10.7-15.3); LYMPH % 33.9 % (8-40); MCHC 33.6 g/dl (32.0-36.0); MEAN CELL VOLUME 83.4 fl (80-96); MEAN PLT VOLUME 10.6 fl (7.5-11.1); MONO % 9.7 % (3.8-10.2); NEUT % 51.2 % (42.8-82.8); PLATELET COUNT 88 K/MM3 (134-434); WHITE BLOOD COUNT 4.9 K/mm3 (4.0-10.0)
[2017-12-20] MEDS ORDERED: LEVOTHYROXINE NA 50 MCG TABLET (FP) PO SCH (07:00)
[2017-12-20 07:25] LABS: CHLORIDE 109 mmol/L (98-107); POTASSIUM 4.4 mmol/L (3.5-5.1); SODIUM 142 mmol/L (136-145)
[2017-12-20 07:39] LABS: ALBUMIN 3.7 g/dl (3.4-5.0); ALK PHOS 60 U/L (45-117); ANION GAP 9 (8-16); BILIRUBIN,TOTAL 0.7 mg/dL (0.2-1.0); BLOOD UREA NITROGEN 29 mg/dL (7-18); CALCIUM 8.7 mg/dL (8.5-10.1); CO2 24 mmol/L (21-32); CREATININE 1.3 mg/dL (0.55-1.02); GLUCOSE,RANDOM 83 mg/dL (74-106); MAGNESIUM 1.9 mg/dL (1.8-2.4); SGOT/AST 21 U/L (15-37); SGPT/ALT 26 U/L (12-78); TOT PROT 6.4 g/dl (6.4-8.2)
--- NOTE | 2017-12-20 08:33 | DS ---
Physical Examination Vital Signs: Vital Signs Temperature 98.0 F 12/20/17 06:00 Pulse Rate 66 12/20/17 06:00 Respiratory Rate 20 12/20/17 06:00 Blood Pressure 141/63 12/20/17 06:00 O2 Sat by Pulse Oximetry (%) 98 12/19/17 22:41 Findings/Remarks: Admitted due to weakness after taking an extra dose of her meds Constitutional: Yes: No Distress Eyes: Yes: WNL HENT: Yes: WNL Neck: Yes: WNL Cardiovascular: Yes: WNL, Regular Rate and Rhythm, Pulse Irregular Respiratory: Yes: WNL Gastrointestinal: Yes: WNL Musculoskeletal: Yes: WNL Edema: No Labs: CBC, BMP 12/20/17 06:20 12/20/17 06:20 Discharge Summary Reason For Visit: OVERDOSE OF ANTIHYPERTENSIVE AGENT Condition: Fair - Instructions Referrals: Narcisa Patino MD [Primary Care Provider] - - Home Medications Comprehensive Discharge Medication List: Ambulatory Orders Digoxin [Lanoxin -] 0.125 mcg PO DAILY 03/13/13 Diltiazem HCl [Cartia Xt] 240 mg PO DAILY 03/13/13 Dofetilide [Tikosyn] 125 mcg PO BID #0 capsule 03/14/13 Warfarin Sodium 3 mg PO ASDIR #0 tablet 03/14/13 Buspirone HCl [Buspar -] 15 mg PO DAILY #0 08/06/14 Levothyroxine [Synthroid -] 50 mcg PO DAILY #0 tablet 08/06/14 Metoprolol Succinate [Toprol XL -] 150 mg PO HS #0 tab.sr.24h 08/06/14 Olmesartan Medoxomil [Benicar -] 40 mg PO DAILY #0 tablet 08/06/14 Rosuvastatin Calcium [Crestor] 10 mg PO HS #0 tablet 08/06/14 Warfarin Sodium [Coumadin] 2.5 mg PO ASDIR #0 08/06/14 Cephalexin Monohydrate [Keflex -] 250 mg PO Q8H #21 capsule 04/13/17
[2017-12-20 09:43] VITALS: BP 145/66; PULSE 94; TEMP 98.6
== END 2017-12-20 11:28 | disposition home or self-care (01) ==
LOC: JER 14:16 → JERFT 15:41 → JERBED 21:15 → J4W 22:27
PROVIDERS: ADMIT Internal Medicine; ATTEND Internal Medicine
PROC: 3E0337Z Introduction of Electrolytic and Water Balance Substance into Peripheral Vein, Percutaneous Approach (ICD-10-PCS; principal; 2017-12-19)
DX: T46.5X1A Poisoning by other antihypertensive drugs, accidental (unintentional), initial encounter (principal); Y92.009 Unspecified place in unspecified non-institutional (private) residence as the place of occurrence of the external cause; I10 Essential (primary) hypertension; I48.91 Unspecified atrial fibrillation; E78.5 Hyperlipidemia, unspecified; N17.9 Acute kidney failure, unspecified; Z88.1 Allergy status to other antibiotic agents; Z79.01 Long term (current) use of anticoagulants
CPT/HCPCS: 36415; 71046-TC-FY; 80048; 80053; 80162; 83735; 85025; 85610; 96360; 99283-25; G0378; J7030

== ENCOUNTER 2021-08-23 12:50 | Inpatient (IN) | payer OTHER, BC ==
[2021-08-23 13:49] VITALS: BMI 18.0
[2021-08-23 13:56] LABS: BASO % 0.7 % (0-2.0); EOS % 4.6 % (0-4.5); HEMATOCRIT 31.5 % (32.4-45.2); HEMOGLOBIN 10.4 GM/dL (10.7-15.3); LYMPH % 24.2 % (8-40); MCH 26.3 pg (25.7-33.7); MCHC 32.9 g/dl (32.0-36.0); MEAN CELL VOLUME 79.8 fl (80-96); MEAN PLT VOLUME 9.4 fl (7.5-11.1); MONO % 9.3 % (3.8-10.2); NEUT % 61.2 % (42.8-82.8); PLATELET COUNT 120 10^3/uL (134-434); RBC 3.95 M/mm3 (3.60-5.2); RDW 16.6 % (11.6-15.6); WHITE BLOOD COUNT 5.4 K/mm3 (4.0-10.0)
[2021-08-23 14:18] LABS: INR 13.25 (0.83-1.09); PROTHROMBIN TIME (PATIENT) 156.4 SEC (9.7-13.0)
[2021-08-23 14:43] LABS: BILIRUBIN,TOTAL 0.7 mg/dL (0.2-1); BLOOD UREA NITROGEN 34.3 mg/dL (7-18); CALCIUM 8.5 mg/dL (8.5-10.1); TOT PROT 6.5 g/dl (6.4-8.2)
[2021-08-23] MEDS ORDERED: PHYTONADIONE 5 MG TABLET PO ONE (15:13)
[2021-08-23] MEDS ORDERED: PHYTONADIONE 5 MG TABLET ONE (15:22)
[2021-08-23] MEDS ORDERED: ATORVASTATIN CA 40 MG TABLET (FP) PO ONE (18:21)
[2021-08-23] MEDS ORDERED: ATORVASTATIN CA 40 MG TABLET (FP) ONE (18:54)
[2021-08-23 20:13] LABS: RETICULOCYTES 0.51 % (0.5-1.5)
[2021-08-23] MEDS: SODIUM CHLORIDE 1,000 ML IV SCH (21:12)
[2021-08-23 22:14] LABS: EPI CELLS 6 /uL (0-25.1); HYALINE CASTS 2 /uL (0-3.1); URINE APPEARANCE CLEAR; URINE BACTERIA 107 /uL (0-1359); URINE BILIRUBIN NEGATIVE (NEGATIVE); URINE COLOR YELLOW; URINE GLUCOSE (UA) NEGATIVE (NEGATIVE); URINE KETONE NEGATIVE (NEGATIVE); URINE LEUK ESTERASE 1+ (NEGATIVE); URINE NITRITE NEGATIVE (NEGATIVE); URINE PROTEIN 1+ (NEGATIVE); URINE RBC 212 /uL (0-23.9); URINE UROBILINOGEN 0.2 mg/dL (0.2-1.0); URINE WBC 174 /uL (0-25.8)
[2021-08-24] MEDS: LEVOTHYROXINE NA 50 MCG TABLET (FP) PO SCH (07:10)
[2021-08-24 07:57] LABS: EOS % 5.8 % (0-4.5); HEMATOCRIT 32.1 % (32.4-45.2); HEMOGLOBIN 10.6 GM/dL (10.7-15.3); LYMPH % 23.2 % (8-40); MCH 26.1 pg (25.7-33.7); MCHC 32.8 g/dl (32.0-36.0); MEAN CELL VOLUME 79.4 fl (80-96); MEAN PLT VOLUME 9.8 fl (7.5-11.1); PLATELET COUNT 120 10^3/uL (134-434); RBC 4.05 M/mm3 (3.60-5.2); RDW 16.1 % (11.6-15.6); WHITE BLOOD COUNT 4.9 K/mm3 (4.0-10.0)
[2021-08-24 08:43] LABS: ALBUMIN 3.9 g/dl (3.4-5.0); BILIRUBIN,TOTAL 0.6 mg/dL (0.2-1); CREATININE 1.4 mg/dL (0.55-1.3); MAGNESIUM 2.1 mg/dL (1.8-2.4); PHOSPHOROUS 3.2 mg/dL (2.5-4.9); TOT PROT 6.3 g/dl (6.4-8.2)
[2021-08-24 08:46] LABS: PROTHROMBIN TIME (PATIENT) 89.6 SEC (9.7-13.0)
[2021-08-24 09:35] LABS: INR 7.63 (0.83-1.09)
[2021-08-24] MEDS ORDERED: amLODIPine BESYLATE 5 MG TABLET (FP) ONE ×2 (09:41→22:21)
[2021-08-24] MEDS ORDERED: FUROSEMIDE 40 MG TABLET (FP) ONE (09:41)
[2021-08-24] MEDS ORDERED: SERTRALINE HCL 50 MG TABLET (FP) ONE (09:42)
[2021-08-24] MEDS ORDERED: LEVOTHYROXINE NA 25 MCG TABLET (FP) ONE (09:42)
[2021-08-24] MEDS ORDERED: CEFTRIAXONE 1 GM/50 ML BAG ONE (09:42)
[2021-08-24] MEDS: FUROSEMIDE 40 MG TABLET (FP) PO SCH (09:53)
[2021-08-24] MEDS: amLODIPine BESYLATE 5 MG TABLET (FP) PO SCH (09:54)
[2021-08-24] MEDS: SERTRALINE HCL 50 MG TABLET (FP) PO SCH (09:54)
[2021-08-24] MEDS ORDERED: CEFTRIAXONE 1 GM in DEXTROSE 5%-WATER - 50 ML IVPB SCH (10:00)
[2021-08-24] MEDS ORDERED: DIGOXIN 0.125 MG TABLET PO SCH ×3 (10:00→22:56)
[2021-08-24] MEDS: CEFTRIAXONE 1 GM in DEXTROSE 5%-WATER - 50 ML IVPB SCH (10:10)
[2021-08-24 13:07] LABS: SARS-CoV-2 NAA Not Detected (Not Detected)
[2021-08-24] MEDS: SODIUM CHLORIDE 1,000 ML IV SCH (19:40)
[2021-08-24] MEDS ORDERED: MELATONIN 5 MG TABLETS PO ONE (22:07)
[2021-08-24] MEDS ORDERED: amLODIPine BESYLATE 5 MG TABLET (FP) PO ONE (22:08)
[2021-08-24] MEDS ORDERED: metoPROLOL SUCCINATE 25 MG TAB.SR.24H (FP) PO ONE (22:10)
[2021-08-24] MEDS ORDERED: MELATONIN 5 MG TABLETS ONE (22:21)
[2021-08-24] MEDS ORDERED: metoPROLOL SUCCINATE 25 MG TAB.SR.24H (FP) ONE (22:21)
[2021-08-25] MEDS: SODIUM CHLORIDE 1,000 ML IV SCH (05:43)
[2021-08-25] MEDS: LEVOTHYROXINE NA 50 MCG TABLET (FP) PO SCH (06:36)
[2021-08-25 08:28] LABS: PROTHROMBIN TIME (PATIENT) 51.2 SEC (9.7-13.0)
[2021-08-25 08:31] LABS: BASO % 0.7 % (0-2.0); HEMATOCRIT 30.7 % (32.4-45.2); HEMOGLOBIN 10.4 GM/dL (10.7-15.3); LYMPH % 16.4 % (8-40); MCH 26.6 pg (25.7-33.7); MCHC 33.8 g/dl (32.0-36.0); MEAN CELL VOLUME 78.7 fl (80-96); MEAN PLT VOLUME 9.1 fl (7.5-11.1); MONO % 7.8 % (3.8-10.2); NEUT % 74.1 % (42.8-82.8); PLATELET COUNT 120 10^3/uL (134-434); RBC 3.91 M/mm3 (3.60-5.2); RDW 16.1 % (11.6-15.6); WHITE BLOOD COUNT 5.7 K/mm3 (4.0-10.0)
[2021-08-25 08:40] LABS: INR 4.39 (0.83-1.09)
[2021-08-25 08:57] LABS: CREATININE 1.2 mg/dL (0.55-1.3)
[2021-08-25] MEDS ORDERED: cefTRIAXone SODIUM 1 GM VIAL ONE (09:37)
[2021-08-25] MEDS ORDERED: DEXTROSE 5%-WATER - 50 ML IVPB ONE (09:37)
[2021-08-25] MEDS: CEFTRIAXONE 1 GM in DEXTROSE 5%-WATER - 50 ML IVPB SCH (10:36)
[2021-08-25] MEDS: FUROSEMIDE 40 MG TABLET (FP) PO SCH ×2 (10:36→11:06)
[2021-08-25] MEDS: amLODIPine BESYLATE 5 MG TABLET (FP) PO SCH ×2 (10:36→11:07)
[2021-08-25] MEDS: metoPROLOL SUCCINATE 25 MG TAB.SR.24H (FP) PO SCH ×2 (10:38→11:07)
[2021-08-25] MEDS: SERTRALINE HCL 50 MG TABLET (FP) PO SCH ×2 (10:38→11:07)
[2021-08-25] MEDS ORDERED: SODIUM CHLORIDE 0.45% 1,000 ML IV SCH (12:15)
[2021-08-25] MEDS ORDERED: LORazepam 2 MG/ML SDV VIAL IM PRN (14:15)
[2021-08-25] MEDS ORDERED: metoPROLOL SUCCINATE 25 MG TAB.SR.24H (FP) PO SCH (15:01)
[2021-08-25] MEDS ORDERED: ROSUVASTATIN CA 10 MG TABLET PO SCH (22:00)
[2021-08-26 07:46] LABS: BLOOD UREA NITROGEN 25.8 mg/dL (7-18)
[2021-08-26 07:48] LABS: CREATININE 1.1 mg/dL (0.55-1.3)
[2021-08-26 07:52] LABS: BASO % 0.8 % (0-2.0); CALCIUM 8.2 mg/dL (8.5-10.1); EOS % 4.2 % (0-4.5); HEMATOCRIT 30.1 % (32.4-45.2); HEMOGLOBIN 10.4 GM/dL (10.7-15.3); LYMPH % 18.6 % (8-40); MCH 26.9 pg (25.7-33.7); MCHC 34.4 g/dl (32.0-36.0); MEAN CELL VOLUME 78.1 fl (80-96); MEAN PLT VOLUME 9.3 fl (7.5-11.1); MONO % 9.9 % (3.8-10.2); NEUT % 66.5 % (42.8-82.8); PLATELET COUNT 106 10^3/uL (134-434); RBC 3.85 M/mm3 (3.60-5.2); WHITE BLOOD COUNT 5.1 K/mm3 (4.0-10.0)
[2021-08-26 07:56] LABS: PROTHROMBIN TIME (PATIENT) 68.5 SEC (9.7-13.0)
[2021-08-26 08:58] LABS: INR 5.85 (0.83-1.09)
[2021-08-26] MEDS ORDERED: cefTRIAXone SODIUM 1 GM VIAL ONE (09:03)
[2021-08-26] MEDS ORDERED: DEXTROSE 5%-WATER - 50 ML IVPB ONE (09:03)
[2021-08-26] MEDS: CEFTRIAXONE 1 GM in DEXTROSE 5%-WATER - 50 ML IVPB SCH (09:23)
[2021-08-26] MEDS: FUROSEMIDE 40 MG TABLET (FP) PO SCH ×2 (09:27→09:38)
[2021-08-26] MEDS: SERTRALINE HCL 50 MG TABLET (FP) PO SCH (09:28)
[2021-08-26] MEDS: LEVOTHYROXINE NA 50 MCG TABLET (FP) PO SCH (09:36)
[2021-08-26] MEDS ORDERED: LOSARTAN POTASSIUM 25 MG TABLET PO SCH (10:00)
[2021-08-26 12:41] VITALS: BP 153/58; PULSE 81; TEMP 98.7
== END 2021-08-26 14:00 | disposition home or self-care (01) | DRG 683 ==
LOC: JER 12:50 → JERBED 17:26 → J4W 08-25 00:39
PROVIDERS: ADMIT Internal Medicine; ATTEND Internal Medicine
DX: N17.9 Acute kidney failure, unspecified (principal); G45.9 Transient cerebral ischemic attack, unspecified; I48.11 Longstanding persistent atrial fibrillation; N39.0 Urinary tract infection, site not specified; I48.19 Other persistent atrial fibrillation; R79.1 Abnormal coagulation profile; E78.5 Hyperlipidemia, unspecified; E03.9 Hypothyroidism, unspecified; F03.90 Unspecified dementia, unspecified severity, without behavioral disturbance, psychotic disturbance, mood disturbance, and anxiety; I12.9 Hypertensive chronic kidney disease with stage 1 through stage 4 chronic kidney disease, or unspecified chronic kidney disease; N18.9 Chronic kidney disease, unspecified
CPT/HCPCS: 36415; 70450-TC; 72170-TC-FY; 73502-TC-RT-FY; 73552-TC-RT-FY; 73590-TC-RT-FY; 73610-TC-RT-FY; 73630-TC-RT-FY; 73700-TC-RT; 76775-TC; 80048; 80053; 80061; 80162; 81003; 82570; 82728; 82962; 83036; 83540; 83550; 83605; 83615; 83735; 84100; 84156; 84300; 84439; 84443; 84484; 84540; 85025; 85045; 85610; 85730; 86850; 86900; 86901; 93005; 93010; 93306-TC; 99285-25; C9803; U0003; U0005

== ENCOUNTER 2021-12-27 01:12 | Inpatient (IN) | payer OTHER, BC ==
[2021-12-27] MEDS ORDERED: FUROSEMIDE 40 MG/4 ML INJECTABLE VIAL IVPUSH ONE ×2 (01:25→10:21)
[2021-12-27] MEDS ORDERED: FUROSEMIDE 40 MG/4 ML INJECTABLE VIAL ONE (01:58)
[2021-12-27 02:42] LABS: BASO % 0.7 % (0-2.0); EOS % 1.8 % (0-4.5); HEMATOCRIT 24.3 % (32.4-45.2); HEMOGLOBIN 7.6 GM/dL (10.7-15.3); LYMPH % 36.6 % (8-40); MCH 24.8 pg (25.7-33.7); MCHC 31.2 g/dl (32.0-36.0); MEAN CELL VOLUME 79.3 fl (80-96); MEAN PLT VOLUME 10.3 fl (7.5-11.1); MONO % 5.8 % (3.8-10.2); NEUT % 55.1 % (42.8-82.8); PLATELET COUNT 202 10^3/uL (134-434); RBC 3.07 M/mm3 (3.60-5.2); RDW 14.8 % (11.6-15.6); WHITE BLOOD COUNT 12.3 K/mm3 (4.0-10.0)
[2021-12-27 02:49] LABS: INR 1.6 (0.83-1.09); PROTHROMBIN TIME (PATIENT) 18.5 SEC (9.7-13.0)
[2021-12-27 03:04] LABS: CALCIUM 8.5 mg/dL (8.5-10.1)
[2021-12-27 03:05] LABS: ALBUMIN 3.8 g/dl (3.4-5.0); BLOOD UREA NITROGEN 42.9 mg/dL (7-18)
[2021-12-27 03:08] LABS: CREATININE 2.3 mg/dL (0.55-1.3)
[2021-12-27 03:10] LABS: BILIRUBIN,TOTAL 0.5 mg/dL (0.2-1); TOT PROT 6.4 g/dl (6.4-8.2)
[2021-12-27 03:13] LABS: N-TERMINAL BNP 30301.7 pg/ml (5-450)
[2021-12-27] MEDS ORDERED: CEFEPIME 1 GM in DEXTROSE 5%-WATER 1 GM/100 ML BAG IVPB SCH (10:00)
[2021-12-27] MEDS ORDERED: CEFEPIME HCL/D5W 1 GM/50 ML BAG IVPB SCH (10:00)
[2021-12-27] MEDS ORDERED: VANCOMYCIN 1 GM in D5W (PRE-DOCKED) 1,000 MG/250 ML IVPB SCH (10:00)
[2021-12-27 10:10] LABS: RETICULOCYTES 1.72 % (0.5-1.5)
[2021-12-27 10:29] LABS: EPI CELLS 8 /uL (0-25.1); HYALINE CASTS 11 /uL (0-3.1); URINE APPEARANCE CLOUDY; URINE BACTERIA 138 /uL (0-1359); URINE BILIRUBIN NEGATIVE (NEGATIVE); URINE COLOR YELLOW; URINE GLUCOSE (UA) NEGATIVE (NEGATIVE); URINE KETONE NEGATIVE (NEGATIVE); URINE LEUK ESTERASE 2+ (NEGATIVE); URINE NITRITE NEGATIVE (NEGATIVE); URINE PROTEIN 1+ (NEGATIVE); URINE RBC 48 /uL (0-23.9); URINE UROBILINOGEN 0.2 mg/dL (0.2-1.0); URINE WBC 662 /uL (0-25.8)
[2021-12-27] MEDS ORDERED: CEFEPIME 1 GM/100 ML BAG IVPB ONE (10:56)
[2021-12-27] MEDS ORDERED: VANCOMYCIN 1 GRAM (PRE-DOCKED) 1,000 MG/250 ML BAG IVPB ONE (11:19)
[2021-12-27] MEDS: ASPIRIN 81 MG CHEWABLE TABLETS PO SCH (15:23)
[2021-12-27] MEDS: ENOXAPARIN NA (PORCINE) 60 MG/0.6 ML DISP.SYRIN SQ SCH ×2 (15:25→22:15)
[2021-12-27 16:17] VITALS: BMI 18.4
[2021-12-27] MEDS ORDERED: ROSUVASTATIN CA 10 MG TABLET PO SCH (22:00)
[2021-12-28] MEDS ORDERED: LEVOTHYROXINE NA 50 MCG TABLET (FP) PO SCH (07:00)
[2021-12-28 08:00] LABS: RBC 3.43 M/mm3 (3.60-5.2)
[2021-12-28 08:01] LABS: BASO % 0.4 % (0-2.0); EOS % 0.2 % (0-4.5); HEMATOCRIT 27.1 % (32.4-45.2); LYMPH % 15.7 % (8-40); MCH 26.2 pg (25.7-33.7); MEAN CELL VOLUME 79.2 fl (80-96); MEAN PLT VOLUME 10.4 fl (7.5-11.1); MONO % 8.4 % (3.8-10.2); NEUT % 75.3 % (42.8-82.8); PLATELET COUNT 164 10^3/uL (134-434); RDW 15.6 % (11.6-15.6)
[2021-12-28 09:00] LABS: ALBUMIN 3.6 g/dl (3.4-5.0); BLOOD UREA NITROGEN 60.2 mg/dL (7-18); CALCIUM 8.8 mg/dL (8.5-10.1); MAGNESIUM 2.4 mg/dL (1.8-2.4)
[2021-12-28 09:03] LABS: PHOSPHOROUS 7.3 mg/dL (2.5-4.9)
[2021-12-28 09:04] LABS: BILIRUBIN,TOTAL 0.9 mg/dL (0.2-1); TOT PROT 6.2 g/dl (6.4-8.2)
[2021-12-28] MEDS ORDERED: CEFEPIME HCL 1 GM VIAL (RESTRICTED TO ID) ONE (09:21)
[2021-12-28] MEDS ORDERED: DEXTROSE 5%-WATER 100 ML IVPB ONE (09:21)
[2021-12-28] MEDS: ENOXAPARIN NA (PORCINE) 60 MG/0.6 ML DISP.SYRIN SQ SCH (09:40)
[2021-12-28] MEDS: ASPIRIN 81 MG CHEWABLE TABLETS PO SCH (09:44)
[2021-12-28 09:47] LABS: LACTIC ACID 2.9 mmol/L (0.4-2.0)
[2021-12-28] MEDS ORDERED: CEFEPIME 1 GM in DEXTROSE 5%-WATER 1 GM/100 ML BAG IVPB SCH (10:00)
[2021-12-28] MEDS ORDERED: METOPROLOL TARTRATE 5 MG/5 ML VIAL IVPUSH ONE (12:05)
[2021-12-28] MEDS ORDERED: METOPROLOL TARTRATE 5 MG/5 ML VIAL IVPUSH PRN (12:05)
[2021-12-28] MEDS ORDERED: LORazepam 2 MG/ML SDV VIAL IM ONE (13:45)
[2021-12-28] MEDS ORDERED: DIGOXIN 0.5 MG/2 ML AMPUL IVPUSH ONE ×2 (13:49→19:10)
[2021-12-28] MEDS ORDERED: METOPROLOL TARTRATE 5 MG/5 ML VIAL IVPB SCH (15:00)
[2021-12-28] MEDS ORDERED: dilTIAZem HCL 50 MG/10 ML - 10 ML VIAL IVPB SCH (15:00)
[2021-12-28] MEDS ORDERED: LORazepam 2 MG/ML SDV VIAL IVPB PRN (17:01)
[2021-12-28 19:48] VITALS: BP 102/56; PULSE 133; TEMP 98.1
[2021-12-28] MEDS ORDERED: MORPHINE SULFATE/0.9% NACL/PF 100 MG/100 ML BAG IVPB SCH (20:30)
== END 2021-12-29 02:15 | disposition expired ==
LOC: JER 01:12 → JERBED 06:48 → J4W 12:35
PROVIDERS: ADMIT Internal Medicine; ATTEND Internal Medicine
DX: I13.0 Hypertensive heart and chronic kidney disease with heart failure and stage 1 through stage 4 chronic kidney disease, or unspecified chronic kidney disease (principal); I21.4 Non-ST elevation (NSTEMI) myocardial infarction; I50.33 Acute on chronic diastolic (congestive) heart failure; J69.0 Pneumonitis due to inhalation of food and vomit; J96.01 Acute respiratory failure with hypoxia; E87.2 Acidosis; N17.9 Acute kidney failure, unspecified; F03.90 Unspecified dementia, unspecified severity, without behavioral disturbance, psychotic disturbance, mood disturbance, and anxiety; N18.30 Chronic kidney disease, stage 3 unspecified; E78.5 Hyperlipidemia, unspecified; I48.0 Paroxysmal atrial fibrillation; E03.9 Hypothyroidism, unspecified; I08.0 Rheumatic disorders of both mitral and aortic valves; D64.9 Anemia, unspecified; Z86.73 Personal history of transient ischemic attack (TIA), and cerebral infarction without residual deficits; Z66 Do not resuscitate
CPT/HCPCS: 0241U-QW; 36415; 36430; 71045-TC-FY; 80053; 80162; 81003; 82272; 82728; 83540; 83550; 83605; 83615; 83735; 83880; 84100; 84484; 85025; 85045; 85610; 86850; 86900; 86901; 86922; 87040; 87086; 93005; 93010; 94660; 99285-25; G0480; P9058